=== PATIENT | male | born 1965 | race Caucasian/White ===

== ENCOUNTER 2016-09-24 20:46 | Emergency (ER) | payer MEDICARE ==
--- NOTE | 2016-09-24 21:57 | ERPHSYRPT ---
- History of Present Illness Time Seen by Provider: 09/24/16 21:51 Source: patient Exam Limitations: no limitations Patient Subjective Stated Complaint: co right hand pain injured at [facility] - slammed in door at 1837 Triage Nursing Assessment: pt is awake and alert and able to answer questions Physician History: The patient is a left handed 51-year-old male with his complaining that while he was at [facility] an employee of [employer] opened the door in front of him, hitting his right hand with the door, causing severe pain. He denies numbness or tingling. The pain is located in the hand near the ring finger and little finger. Occurred: hours ago (3) Method of Injury: other Quality: sharpness Severity of Pain-Max: moderate Severity of Pain-Current: moderate Extremities Pain Location: hand: right Modifying Factors: Improves With: nothing Associated Symptoms: none Allergies/Adverse Reactions: No Known Drug Allergies Allergy (Verified 09/24/16 21:50) Hx Tetanus, Diphtheria Vaccination/Date Given: No Hx Influenza Vaccination/Date Given: No Hx Pneumococcal Vaccination/Date Given: No - Review of Systems Constitutional: No Fever, No Chills Eyes: No Symptoms Ears, Nose, & Throat: No Symptoms Respiratory: No Cough, No Dyspnea Cardiac: No Chest Pain, No Edema, No Syncope Abdominal/Gastrointestinal: No Abdominal Pain, No Nausea, No Vomiting, No Diarrhea Genitourinary Symptoms: No Dysuria Musculoskeletal: Injury Skin: No Rash Neurological: No Dizziness, No Focal Weakness, No Sensory Changes Psychological: No Symptoms Endocrine: No Symptoms Hematologic/Lymphatic: No Symptoms Immunological/Allergic: No Symptoms All Other Systems: Reviewed and Negative - Past Medical History Pertinent Past Medical History: No Neurological History: No Pertinent History ENT History: No Pertinent History Cardiac History: No Pertinent History Respiratory History: No Pertinent History Endocrine Medical History: No Pertinent History Musculoskeletal History: No Pertinent History GI Medical History: No Pertinent History History: No Pertinent History Psycho-Social History: No Pertinent History Male Reproductive Disorders: No Pertinent History Other Medical History: [place] - Past Surgical History Past Surgical History: Yes Neuro Surgical History: No Pertinent History Cardiac: No Pertinent History Respiratory: No Pertinent History Gastrointestinal: No Pertinent History Genitourinary: No Pertinent History Musculoskeletal: Orthopedic Surgery Male Surgical History: No Pertinent History Other Surgical History: surgery on a finger yrs ago,right shoulder arthrosc. recently - Social History Smoking Status: Current every day smoker How long have you smoked: yrs Exposure to second hand smoke: Yes Drug Use: none Patient Lives Alone: Yes - Nursing Vital Signs Nursing Vital Signs: Initial Vital Signs Temperature 98.9 F Temperature Source Oral Pulse Rate 78 Respiratory Rate 14 Blood Pressure [Right Arm] 131/84 Pain Intensity 10 - Physical Exam General Appearance: mild distress Eyes, Ears, Nose, Throat Exam: moist mucous membranes Neck Exam: non-tender, supple Cardiovascular/Respiratory Exam: chest non-tender, normal breath sounds, regular rate/rhythm, no respiratory distress Abdominal Exam: non-tender, No guarding Back Exam: normal inspection, No vertebral tenderness Shoulder Exam: normal inspection Elbow/Forearm Exam: normal inspection Wrist Exam: normal inspection Hand Exam: bone tenderness (Examination of the right hand reveals mild swelling and moderate tenderness over the mid part of the fourth and fifth metacarpal bones.), swelling Neuro/Tendon Exam: normal sensation, normal motor functions Mental Status Exam: alert, oriented x 3, cooperative Skin Exam: normal color, warm, dry SpO2 Interpretation: normal SpO2: 96 Oxygen Delivery: Room Air - Radiology Exams Right Hand X-ray Interpretation: Interpreted by me, No Fracture Ordered Tests: Active Orders 24 hr Category Date Time Status HAND (MINIMUM 3 VIEWS) Stat Exams 09/24/16 21:59 Taken Medication Summary Discontinued Medications Generic Name Dose Route Start Last Admin Trade Name Kimberly PRN Reason Stop Dose Admin Ketorolac Tromethamine 60 mg 09/24/16 21:59 09/24/16 22:16 Toradol 30 Mg Injection IM 09/24/16 22:00 60 mg STAT ONE Administration Ketorolac Tromethamine Confirm 09/24/16 22:08 Toradol 30 Mg Injection Administered 09/24/16 22:09 Dose 60 mg .ROUTE .STK-MED ONE - Progress Progress: improved Counseled pt/family regarding: rad results - Departure Time of Disposition: 22:31 Departure Disposition: Home Clinical Impression: Contusion of right hand Condition: Stable Critical Care Time: No Additional Instructions: You have a contusion to your right hand. You were given Toradol 60 mg IM in the ER. Take naproxen 500 mg twice a day as needed. Apply ice to the area as needed. Prescriptions: Naproxen 500 mg PO BID PRN #30 tablet.
[2016-09-24] MEDS ORDERED: TORAdol 30 mg Injection IM ONE (21:59)
[2016-09-24 22:05] VITALS: PULSE 78
[2016-09-24] MEDS ORDERED: TORAdol 30 mg Injection ONE (22:08)
[2016-09-24 22:43] VITALS: BP 138/68; O2SAT 97
--- NOTE | 2016-09-25 09:08 | XRAY ---
Indication: Pain following crush injury. Comparison: May 21, 2015. 3 views of the right hand again demonstrates fifth finger flexion deformity and fifth DIP degenerative changes. No new/acute bony, articular, or soft tissue abnormalities.
== END 2016-09-24 22:43 | disposition home or self-care (01) ==
LOC: ED 20:46
DX: S60.221A Contusion of right hand, initial encounter (principal); W22.8XXA Striking against or struck by other objects, initial encounter; Y92.512 Supermarket, store or market as the place of occurrence of the external cause
CPT/HCPCS: 73130; 96372; 99284; J1885

== ENCOUNTER 2018-09-02 06:20 | Emergency (ER) | payer MEDICARE ==
[2018-09-02] MEDS ORDERED: Sodium Chloride 0.9% 1000 ML 1,000 ML IV STA (06:41)
[2018-09-02] MEDS ORDERED: Zofran 4 MG/2 ML VIAL IV ONE (06:41)
[2018-09-02] MEDS ORDERED: MORPHINE SULFATE 4 MG INJ IV ONE (06:41)
--- NOTE | 2018-09-02 06:46 | ERPHSYRPT ---
- History of Present Illness Historian: patient Exam Limitations: no limitations, other (patient hard of hearing but able to area on conversation) Patient Subjective Stated Complaint: went to bed last nite felt like something popped and it severe katlyn lyn right side Triage Nursing Assessment: patietn intermittant coughing, tender to touch on right side flank, no rebound tenderness noted, able to ambulate by self, skin warm dry and intact, pupils perrla2, Timing/Duration: today (5am today) Activities at Onset: other (coughed and felt pain right lower lateral abdomen) Quality: sharpness Abdominal Pain Onset Location: other (right lower lateralabdomen) Pain Radiation: no radiation Severity of Pain-Max: moderate Severity of Pain-Current: moderate Modifying Factors: Improves With: coughing, palpation. Worsens With: analgesics , antacids, breathing, defecating, eating, exercise, lying down, movement, rest , urinating, vomiting, position, walking Associated Symptoms: No back, No chest pain, No diaphoresis, No diarrhea, No fever/chills, No fatigue, No headache, No heartburn, No loss of appetite, No nausea, No neck pain, No rash, No shortness of breath, No syncope, No testicular pain, No vomiting, No weakness Previous symptoms: no prior history Hx Tetanus, Diphtheria Vaccination/Date Given: No Hx Influenza Vaccination/Date Given: No Hx Pneumococcal Vaccination/Date Given: No Immunizations Up to Date: No <MANUELITO ALVARENGA - Last Filed: 09/02/18 06:55> <HANSEL GRIER - Last Filed: 09/02/18 09:50> - History of Present Illness Time Seen by Provider: 09/02/18 06:41 Allergies/Adverse Reactions: No Known Drug Allergies Allergy (Verified 09/24/16 21:50) - Review of Systems Constitutional: No Fever, No Chills Eyes: No Symptoms Ears, Nose, & Throat: No Symptoms Respiratory: No Cough, No Dyspnea Cardiac: No Chest Pain, No Edema, No Syncope Abdominal/Gastrointestinal: Abdominal Pain, No Nausea, No Vomiting, No Diarrhea , No Constipation, No Hematemesis, No Hematochezia, No Melena, No Dysphagia, No Appetite Changes Genitourinary Symptoms: No Dysuria Musculoskeletal: No Back Pain, No Neck Pain Skin: No Rash Neurological: No Dizziness, No Focal Weakness, No Sensory Changes Psychological: No Symptoms Endocrine: No Symptoms All Other Systems: Reviewed and Negative <SHIRANABILAMANUELITO DOAN - Last Filed: 09/02/18 06:55> - Past Medical History Pertinent Past Medical History: No Neurological History: No Pertinent History ENT History: No Pertinent History Cardiac History: No Pertinent History Respiratory History: No Pertinent History Endocrine Medical History: No Pertinent History Musculoskeletal History: No Pertinent History GI Medical History: No Pertinent History History: No Pertinent History Psycho-Social History: No Pertinent History Male Reproductive Disorders: No Pertinent History Other Medical History: [place] - Past Surgical History Past Surgical History: Yes Neuro Surgical History: No Pertinent History Cardiac: No Pertinent History Respiratory: No Pertinent History Gastrointestinal: Cholecystectomy Genitourinary: No Pertinent History Musculoskeletal: Orthopedic Surgery Male Surgical History: No Pertinent History Other Surgical History: surgery on a finger yrs ago,right shoulder arthrosc. recently - Social History Smoking Status: Current every day smoker How long have you smoked: yrs Exposure to second hand smoke: Yes Drug Use: none Patient Lives Alone: No <SHIRANABILAMANUELITO DOAN - Last Filed: 09/02/18 06:55> - Physical Exam General Appearance: mild distress, alert Eye Exam: PERRL/EOMI, eyes nml inspection Ears, Nose, Throat Exam: normal ENT inspection, pharynx normal, moist mucous membranes Neck Exam: normal inspection, non-tender, supple, full range of motion Respiratory Exam: normal breath sounds, lungs clear, No respiratory distress Cardiovascular Exam: regular rate/rhythm, normal heart sounds, capillary refill <2 sec Gastrointestinal/Abdomen Exam: soft, normal bowel sounds, tenderness (tender with palpation right lower lateral abdomen) Back Exam: normal inspection, normal range of motion, No CVA tenderness, No vertebral tenderness Extremity Exam: normal inspection, normal range of motion, pelvis stable Neurologic Exam: alert, oriented x 3, cooperative, 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, normal mood/affect, nml cerebellar function, sensation nml, No motor deficits Skin Exam: normal color, warm, dry SpO2 Interpretation: normal (98%) SpO2: 98 <COLETTEMANUELITO FRANKI - Last Filed: 09/02/18 06:55> - Nursing Vital Signs Nursing Vital Signs: Initial Vital Signs Temperature 97.9 F 09/02/18 06:20 Pulse Rate 60 09/02/18 06:20 Respiratory Rate 16 09/02/18 06:20 Blood Pressure 115/73 09/02/18 06:20 O2 Sat by Pulse Oximetry 98 09/02/18 06:20 Pain Scale Pain Intensity 7 - Course Nursing assessment & vital signs reviewed: Yes EKG Interpreted by Me: RATE (74/min), NORMAL AXIS, NORMAL INTERVALS, NORMAL QRS , Non-specific ST Changes - Radiology Exams Right Ribs X-ray Interpretation: Interpreted by me, Reviewed by me, Negative Chest X-ray Interpretation: Interpreted by me, Reviewed by me, Negative - CT Exams Abdomen/Pelvis CT Interpretation: Negative, Tele-radiologist Report, Other (new right renal cyst, mesenteric lymphadenitis) <HANSEL GRIER - Last Filed: 09/02/18 09:50> Ordered Tests: Active Orders 24 hr Category Date Time Status EKG-ER Only STAT Care 09/02/18 07:07 Active IV Insertion STAT Care 09/02/18 06:41 Active ABDOMEN AND PELVIS W/0 CONTRAS [CT] Stat Exams 09/02/18 08:18 Completed CHEST 2 VIEWS (PA AND LAT) Stat Exams 09/02/18 07:09 Completed RIBS UNILATERAL Stat Exams 09/02/18 07:09 Completed AMYLASE Routine Lab 09/02/18 07:15 Completed CBC W DIFF Stat Lab 09/02/18 07:00 Completed CK-Creatinine Phosphokinase Routine Lab 09/02/18 07:15 Completed CMP Routine Lab 09/02/18 07:15 Completed D-DIMER QUANTITATION Stat Lab 09/02/18 07:07 Completed LIPASE Routine Lab 09/02/18 07:15 Completed PROTIME WITH INR Stat Lab 09/02/18 07:07 Completed PTT Stat Lab 09/02/18 07:07 Completed TROPONIN Q3H Lab 09/02/18 07:15 Completed TROPONIN Q3H Lab 09/02/18 10:15 Ordered TROPONIN Q3H Lab 09/02/18 13:15 Ordered TROPONIN Q3H Lab 09/02/18 16:15 Ordered TROPONIN Q3H Lab 09/02/18 19:15 Ordered UA W/RFX UR CULTURE Stat Lab 09/02/18 07:00 Completed Medication Summary Generic Name Dose Route Start Last Admin Trade Name Freq PRN Reason Stop Dose Admin Sodium Chloride 1,000 mls @ 250 mls/hr 09/02/18 07:15 09/02/18 08:21 Sodium Chloride 0.9% 1000 Ml IV 10/02/18 07:14 250 mls/hr .Q4H BLANCA Administration Discontinued Medications Generic Name Dose Route Start Last Admin Trade Name Kimberly PRN Reason Stop Dose Admin Fentanyl Citrate 75 mcg 09/02/18 08:07 09/02/18 08:21 Sublimaze 100 Mcg/2 Ml IV 09/02/18 08:08 75 mcg STAT ONE Administration Fentanyl Citrate Confirm 09/02/18 08:19 Sublimaze 100 Mcg/2 Ml Administered 09/02/18 08:20 Dose 100 mcg .ROUTE .STK-MED ONE Sodium Chloride 1,000 mls @ 999 mls/hr 09/02/18 06:41 09/02/18 08:29 Sodium Chloride 0.9% 1000 Ml IV 09/02/18 07:41 Infused .Q1H1M STA Infusion Sodium Chloride Confirm 09/02/18 06:47 Sodium Chloride 0.9% 1000 Ml Administered 09/02/18 06:48 Dose 1,000 mls @ ud .ROUTE .STK-MED ONE Ketorolac Tromethamine 30 mg 09/02/18 07:07 09/02/18 07:17 Toradol 30 Mg Injection IV 09/02/18 07:08 30 mg STAT ONE Administration Ketorolac Tromethamine Confirm 09/02/18 07:16 Toradol 30 Mg Injection Administered 09/02/18 07:17 Dose 30 mg .ROUTE .STK-MED ONE Morphine Sulfate 4 mg 09/02/18 06:41 09/02/18 06:57 Morphine Sulfate 4 Mg Inj IV 09/02/18 06:42 4 mg STAT ONE Administration Morphine Sulfate Confirm 09/02/18 06:47 Morphine Sulfate 4 Mg Inj Administered 09/02/18 06:48 Dose 4 mg .ROUTE .STK-MED ONE Ondansetron HCl 4 mg 09/02/18 06:41 09/02/18 06:57 Zofran 4 Mg/2 Ml Vial IV 09/02/18 06:42 4 mg STAT ONE Administration Ondansetron HCl Confirm 09/02/18 06:47 Zofran 4 Mg/2 Ml Vial Administered 09/02/18 06:48 Dose 4 mg .ROUTE .STK-MED ONE Lab/Rad Data: Laboratory Result Diagrams 09/02/18 07:00 09/02/18 07:15 Laboratory Results 09/02/18 09/02/18 09/02/18 Range/Units 07:15 07:07 07:00 WBC (4.0-10.5) K/mm3 RBC (4.1-5.6) M/mm3 Hgb (12.5-18.0) gm/dl Hct (42-50) % MCV (78-100) fl MCH (26-32) pg MCHC (32-36) g/dl RDW (11.5-14.0) % Plt Count (150-450) K/mm3 MPV (6-9.5) fl Gran % (36.0-66.0) % Eos # (Auto) (0-0.5) Absolute Lymphs (auto) (1.0-4.6) Absolute Monos (auto) (0.0-1.3) Lymphocytes % (24.0-44.0) % Monocytes % (0.0-12.0) % Eosinophils % (0.00-5.0) % Basophils % (0.0-0.4) % Absolute Granulocytes (1.4-6.9) Basophils # (0-0.4) PT 11.0 (8.83-12.87) SECONDS INR 0.97 (0.8-3.0) APTT 33.3 (24.1-36.1) SECONDS D-Dimer 356 (215-500) ng/mL Sodium 138 (137-145) mmol/L Potassium 3.8 (3.5-5.1) mmol/L Chloride 101 (98-107) mmol/L Carbon Dioxide 29 (22-30) mmol/L Anion Gap 12.7 (5-15) MEQ/L BUN 11 (9-20) mg/dL Creatinine 0.91 (0.66-1.25) mg/dL Estimated GFR > 60.0 ML/MIN Glucose 123 H (74-106) mg/dL Calcium 10.2 (8.4-10.2) mg/dL Total Bilirubin 0.40 (0.2-1.3) mg/dL AST 26 (17-59) U/L ALT 27 (0-50) U/L Alkaline Phosphatase 89 (38-126) U/L Creatine Kinase 78 (55-170) U/L Troponin I < 0.012 (0.000-0.034) ng/mL Serum Total Protein 6.6 (6.3-8.2) g/dL Albumin 4.0 (3.5-5.0) g/dL Amylase 51 (30-110) U/L Lipase 107 (23-300) U/L Urine Color YELLOW (YELLOW) Urine Appearance CLEAR (CLEAR) Urine pH 5.0 (5-6) Ur Specific [place] 1.020 (1.005-1.025) Urine Protein NEGATIVE (Negative) Urine Ketones NEGATIVE (NEGATIVE) Urine Blood NEGATIVE (0-5) Ellis/ul Urine Nitrite NEGATIVE (NEGATIVE) Urine Bilirubin NEGATIVE (NEGATIVE) Urine Urobilinogen NEGATIVE (0-1) mg/dL Ur Leukocyte Esterase NEGATIVE (NEGATIVE) Urine WBC (Auto) NONE (0-5) /HPF Urine RBC (Auto) NONE (0-2) /HPF U Epithel Cells (Auto) NONE (FEW) /HPF Urine Bacteria (Auto) NONE (NEGATIVE) /HPF Urine Mucus (Auto) SLIGHT (NEGATIVE) /HPF Urine Culture Reflexed NO (NO) Urine Glucose NEGATIVE (NEGATIVE) mg/dL 09/02/18 Range/Units 07:00 WBC 9.3 (4.0-10.5) K/mm3 RBC 4.96 (4.1-5.6) M/mm3 Hgb 16.0 (12.5-18.0) gm/dl Hct 47.3 (42-50) % MCV 95.4 (78-100) fl MCH 32.3 H (26-32) pg MCHC 33.8 (32-36) g/dl RDW 13.1 (11.5-14.0) % Plt Count 245 (150-450) K/mm3 MPV 10.0 H (6-9.5) fl Gran % 67.0 H (36.0-66.0) % Eos # (Auto) 0.19 (0-0.5) Absolute Lymphs (auto) 1.94 (1.0-4.6) Absolute Monos (auto) 0.93 (0.0-1.3) Lymphocytes % 20.9 L (24.0-44.0) % Monocytes % 10.0 (0.0-12.0) % Eosinophils % 2.0 (0.00-5.0) % Basophils % 0.1 (0.0-0.4) % Absolute Granulocytes 6.20 (1.4-6.9) Basophils # 0.01 (0-0.4) PT (8.83-12.87) SECONDS INR (0.8-3.0) APTT (24.1-36.1) SECONDS D-Dimer (215-500) ng/mL Sodium (137-145) mmol/L Potassium (3.5-5.1) mmol/L Chloride (98-107) mmol/L Carbon Dioxide (22-30) mmol/L Anion Gap (5-15) MEQ/L BUN (9-20) mg/dL Creatinine (0.66-1.25) mg/dL Estimated GFR ML/MIN Glucose (74-106) mg/dL Calcium (8.4-10.2) mg/dL Total Bilirubin (0.2-1.3) mg/dL AST (17-59) U/L ALT (0-50) U/L Alkaline Phosphatase (38-126) U/L Creatine Kinase (55-170) U/L Troponin I (0.000-0.034) ng/mL Serum Total Protein (6.3-8.2) g/dL Albumin (3.5-5.0) g/dL Amylase (30-110) U/L Lipase (23-300) U/L Urine Color (YELLOW) Urine Appearance (CLEAR) Urine pH (5-6) Ur Specific [place]alt (1.005-1.025) Urine Protein (Negative) Urine Ketones (NEGATIVE) Urine Blood (0-5) Ellis/ul Urine Nitrite (NEGATIVE) Urine Bilirubin (NEGATIVE) Urine Urobilinogen (0-1) mg/dL Ur Leukocyte Esterase (NEGATIVE) Urine WBC (Auto) (0-5) /HPF Urine RBC (Auto) (0-2) /HPF U Epithel Cells (Auto) (FEW) /HPF Urine Bacteria (Auto) (NEGATIVE) /HPF Urine Mucus (Auto) (NEGATIVE) /HPF Urine Culture Reflexed (NO) Urine Glucose (NEGATIVE) mg/dL - Progress Progress: improved <MANUELITO ALVARENGA - Last Filed: 09/02/18 06:55> - Progress Counseled pt/family regarding: lab results, diagnosis, need for follow-up, rad results <HANSEL GRIER - Last Filed: 09/02/18 09:50> - Progress Progress Note: 09/02/18 06:44 53-year-old white male with history of hard of hearing arrives with complaint of pain in the right lower lateral abdomen symptoms which began around 5 AM he states he coughed and felt a pop in his right lower lateral abdomen he states he has pain in this area worse with movement and palpation. He has not had any nausea no vomiting no diarrhea no urinary symptoms. Past medical history includes hard of hearing, past surgical history includes orthopedic surgery right shoulder arthroscopic finger surgery and cholecystectomy . social history is positive for tobacco use he denies illicit drugs or alcohol use. 09/02/18 06:55 The patient's case will be transferred to Dr. Grier secondary to shift change. Case was discussed with Dr. Grier. (MANUELITO ALVARENGA) 09/02/18 09:44 Pt states, improved after IV Toradol, Fentanyl, denies severe pain or shortness of breath, no fever or distress, reviewed his results with him ( CT abd-pelvis, X rays, labs) he is going to be discharged on PO Naprosyn, Zithromax and Albuterol inhaler to rest x 2-3 days, apply moist heat to his back and follow up with his physician in 2-3 days. (HANSEL GRIER) <MANUELITO ALVARENGA - Last Filed: 09/02/18 06:55> - Departure Departure Disposition: Home Critical Care Time: No <HANSEL GRIER - Last Filed: 09/02/18 09:50> - Departure Clinical Impression: Bronchitis Back pain Qualifiers: Back pain location: low back pain Chronicity: acute Back pain laterality: right Sciatica presence: without sciatica Qualified Code(s): M54.5 - Low back pain Condition: Stable Referrals: ROBERTO GUAMAN [Primary Care Provider] - Instructions: Low Back Pain (DC), Acute Bronchitis, Adult (DC) Additional Instructions: Rest x 2-3 days, apply moist heat to painful area, and follow up with your physician in 2-3 days, return if severe pain, vomiting, shortness of breath, fever> 102 F! Prescriptions: Albuterol Sulfate [Albuterol Sulfate Hfa] 8.5 gm IH Q4H PRN #1 [id number] PRN Reason: Shortness Of Breath/Wheezing Azithromycin 250 mg [Zithromax 250 MG TABLET] 250 mg PO ZPACK #6 tablet Naproxen 375 mg [Naprosyn 375 mg] 375 mg PO BID PRN #20 tablet PRN Reason: Pain
[2018-09-02] MEDS ORDERED: MORPHINE SULFATE 4 MG INJ ONE (06:47)
[2018-09-02] MEDS ORDERED: Sodium Chloride 0.9% 1000 ML 1,000 ML ONE ×2 (06:47→08:19)
[2018-09-02] MEDS ORDERED: Zofran 4 MG/2 ML VIAL ONE (06:47)
[2018-09-02] MEDS ORDERED: TORAdol 30 mg Injection IV ONE (07:07)
[2018-09-02 07:10] LABS: BASOPHIL % 0.1 % (0.0-0.4); Basophil (Absolute #) 0.01 (0-0.4); Eosinophil (Absolute #) 0.19 (0-0.5); Hematocrit 47.3 % (42-50); Lymphocyte (Absolute #) 1.94 (1.0-4.6); Lymphocytes % 20.9 % (24.0-44.0); Mean Cell Volume 95.4 fl (78-100); Mean Corpuscular Hemoglobin 32.3 pg (26-32); Mean Corpuscular Hgb Concent. 33.8 g/dl (32-36); Platelet Count 245 K/mm3 (150-450); Red Blood Count 4.96 M/mm3 (4.1-5.6); Red Cell Distribution Width 13.1 % (11.5-14.0); White Blood Count 9.3 K/mm3 (4.0-10.5)
[2018-09-02 07:12] LABS: Appearance CLEAR (CLEAR); Bilirubin NEGATIVE (NEGATIVE); Blood NEGATIVE Ery/ul (0-5); Glucose NEGATIVE (NEGATIVE); Ketones NEGATIVE (NEGATIVE); Leukocyte Esterase NEGATIVE (NEGATIVE); Mucus SLIGHT /HPF (NEGATIVE); Nitrite NEGATIVE (NEGATIVE); Protein,Urine Dip NEGATIVE (Negative); Urobilinogen NEGATIVE mg/dL (0-1)
[2018-09-02] MEDS ORDERED: Sodium Chloride 0.9% 1000 ML 1,000 ML IV SCH (07:15)
[2018-09-02] MEDS ORDERED: TORAdol 30 mg Injection ONE (07:16)
[2018-09-02 07:25] LABS: INR 0.97 (0.8-3.0)
[2018-09-02 07:28] LABS: PTT 33.3 SECONDS (24.1-36.1)
[2018-09-02] MEDS ORDERED: SUBLIMAZE 100 MCG/2 ML IV ONE (08:07)
[2018-09-02 08:14] LABS: ALKALINE PHOSPHATASE 89 U/L (38-126); AMYLASE 51 U/L (30-110); ANION GAP 12.7 MEQ/L (5-15); BLOOD UREA NITROGEN 11 mg/dL (9-20); CHLORIDE 101 mmol/L (98-107); CK-Creatinine Phosphokinase 78 U/L (55-170); Calcium 10.2 mg/dL (8.4-10.2); Carbon Dioxide 29 mmol/L (22-30); Creatinine 1 0.91 mg/dL (0.66-1.25); Glucose 123 mg/dL (74-106); LIPASE 107 U/L (23-300); Potassium 3.8 mmol/L (3.5-5.1); SGOT/AST 26 U/L (17-59); SGPT/ALT 27 U/L (0-50); SODIUM 138 mmol/L (137-145); Total Protein 6.6 g/dL (6.3-8.2)
[2018-09-02 08:15] LABS: TROPONIN < 0.012 ng/mL (0.000-0.034)
[2018-09-02] MEDS ORDERED: SUBLIMAZE 100 MCG/2 ML ONE (08:19)
--- NOTE | 2018-09-02 09:18 | XRAY ---
Indication: Right abdomen/flank pain. Multiple contiguous axial images obtained through the abdomen and pelvis without contrast as ordered. Comparison: December 25, 2012. Lung bases again demonstrates minimal dependent atelectasis. No infiltrate or effusion. Heart is not enlarged. Noncontrasted stomach and bowel loops appear nonobstructed. Normal appendix. Again minimal sigmoid diverticulosis without diverticulitis. No free fluid/air. Interval cholecystectomy. No free fluid/air. Midabdomen demonstrates a few small subcentimeter mesenteric lymph nodes with minimal stranding, possible mesenteric adenitis. New 1.1 cm exophytic right upper pole renal cyst. Remaining liver, pancreas, spleen, adrenal glands, kidneys, ureters, and bladder appear unremarkable for noncontrast exam. Mild aortoiliac calcifications without AAA. Osseous structures intact with minimal degenerative changes throughout the spine. No ventral or inguinal hernias. Impression: 1. Small mid abdomen mesenteric nodes with minimal stranding favoring mesenteric adenitis. 2. Again sigmoid diverticulosis without diverticulitis. 3. New right renal cyst. 4. Remaining CT abdomen/pelvis without contrast exam is negative. CT DI 23.04
--- NOTE | 2018-09-02 09:22 | XRAY ---
Indication: Right lower rib pain. No known injury. Comparison: None PA/lateral chest is clear. Heart and mediastinal structures within normal limits. Bony thorax intact with mild levoscoliosis. Impression: Nonacute chest.
--- NOTE | 2018-09-02 09:24 | XRAY ---
Indication: Right lower rib pain. No known injury. Comparison: None 2 views of the right ribs demonstrates mild thoracic levoscoliosis and cholecystectomy clips. No other bony, articular, or soft tissue abnormalities.
[2018-09-02 09:52] VITALS: BP 122/68; PULSE 66; O2SAT 93
== END 2018-09-02 10:06 | disposition home or self-care (01) ==
LOC: ED 06:20
DX: J40 Bronchitis, not specified as acute or chronic (principal); M54.5 Low back pain
CPT/HCPCS: 36000; 36415; 71046; 71100; 74176; 80053; 81001; 82150; 82550; 83690; 84484; 85025; 85379; 85610; 85730; 93005; 96360; 96361; 96374; 96375; 99285; J1885; J2270; J2405; J3010